=== PATIENT | female | born 1955 | race African-American/Black ===

== ENCOUNTER 2017-03-18 07:26 | Outpatient (CLI) | payer OTHER ==
[2017-03-18 07:44] LABS: EOSINOPHILS % 14.9 % (0.0-6.8); MEAN CORPUSCULAR HEMOGLOBIN 31.2 pg (28.0-34.0); MEAN CORPUSCULAR VOLUME 97.6 fl (80.0-100.0); MONOCYTES % 4.8 % (0.0-11.0); NEUTROPHILS # 1.3 # k/uL (1.4-7.7)
[2017-03-18 08:10] LABS: eGFR (African) > 60; eGFR (Non-African) > 60
[2017-03-19 07:01] LABS: APPEARANCE,URINE Clear (CLEAR); COLOR,URINE Yellow (YELLOW); OCCULT BLOOD,URINE Trace-lysed (NEGATIVE); UROBILINOGEN URINE 0.2 Eu (0.2-1.0)
== END 2017-03-18 07:27 ==
LOC: LAB 07:26
DX: E78.5 Hyperlipidemia, unspecified (principal)
CPT/HCPCS: 36415; 80053; 80061; 81002; 85025; 87086

== ENCOUNTER 2017-04-18 10:10 | Outpatient (CLI) | payer OTHER ==
[2017-04-18] MEDS ORDERED: ALBUTEROL SULFATE 2.5 MG/3 ML AMPUL.NEB NEB ONE (10:21)
== END 2017-04-18 10:12 ==
LOC: RT 10:10
PROVIDERS: ATTEND Physician Assistant
DX: R06.02 Shortness of breath (principal)
CPT/HCPCS: 94060

== ENCOUNTER 2018-11-25 01:05 | Emergency (ER) | payer OTHER ==
[2018-11-25] MEDS: IPRATROPIUM/ALBUTEROL SULFATE 3 ML AMPUL.NEB NEB ONE ×3 (01:15→02:35)
--- NOTE | 2018-11-25 01:17 | ED Physician Documentation ---
Dyspnea - HISTORIAN Historian: patient - HPI Stated Complaint: shortness of breath Chief Complaint: Dyspnea Additional Information: Patient presents to ED with shortness of breath since 1999. She states she had been outside playing with her grandson all day and came into the house tonight with shortness of breath. Patient has a history of COPD and used her inhaler several times before coming to the ER. Upon presentation to ED SaO2 was 66% on room air. Onset: hours (5) Duration: continues in ED Severity: moderate Exacerbated By: nothing Associated Symptoms: none Further Comments: no - ROS CONST: no problems EYES/ENT: none GI/: none NEURO/PSYCH: denies: headache MS/SKIN/LYMPH: none - PAST HX Lung Disease: COPD Cardiac Disease: none PE Risk Factors: none Surgeries/Procedures: denies: prior intubation Other History: none Allergies/Adverse Reactions: Allergies Allergy/AdvReac Type Severity Reaction Status Date / Time No Known Drug Allergies Allergy Verified 11/25/18 02:16 Home Medications: Ambulatory Orders Medication Instructions Recorded Albuterol Sulfate [Proair Hfa] 2 puff INH PRN PRN #8 02/03/17 Azithromycin 500 mg PO DAILY #5 tablet 11/25/18 Ipratropium/Albuterol Sulfate 1 vial INH TID 11/25/18 [Duoneb] Montelukast Sodium [Singulair] 10 mg PO HS #30 tablet 11/25/18 predniSONE [Deltasone] 10 mg PO DIRECTED #20 tablet 11/25/18 - SOCIAL HX Smoking History: quit less than 1 year, cigarettes, less than 1 pack/day Alcohol Use: none Drug Use: none - FAMILY HX Family History: none - REVIEWED ASSESSMENTS Nursing Assessment Reviewed: Yes Vitals Reviewed: Yes Progress - Progress Progress: 0229 Patient states she is feeling better and breathing easier. SaO2 is 92% on room air 0253 Patient ambulated to ER waiting room to get a magazine. Upon return SaO2 89% on room air. Patient recovered to 93% within seconds of rest. ED Results Lab/Radiology - Radiology Radiology Impressions: Report Submission Date: Nov 25, 2018 1:45:21 AM CDT Patient Study Name: ROXY VILLEGAS Date: Nov 25, 2018 1:20:36 AM CDT Modality Type: DX Gender: F Description: CHEST 1VIEW : 51 Institution: [facility] Physician: MARIELENA GRAVES Portable chest History: Shortness of breath Findings: The lungs are clear. There is no pleural effusion. Heart size, pulmonary vascularity, and osseous structures are unremarkable. The lungs are mildly hyperinflated. Impression: Mild hyperinflation. Electronically signed on Nov 25, 2018 1:45:21 AM CDT by: Edson Marcelino Dyspnea Physical Exam - EXAM General Appearance: no acute distress, alert EENT: RADAMES Respiratory: respiratory distress, prolonged expirations, accessory muscle use (tripod position), wheezes (scattered wheezing bilaterally) CVS: reg. rate & rhythm Abdomen: non-tender Skin: no rash Extremities: non-tender Neuro/Psych: oriented x3 Discharge Clincal Impression: COPD with acute exacerbation Prescriptions: Azithromycin 500 mg PO DAILY #5 tablet Montelukast Sodium [Singulair] 10 mg PO HS #30 tablet predniSONE [Deltasone] 10 mg PO DIRECTED #20 tablet Referrals: Estelita Oviedo MD [Primary Care Provider] - 2 Days Additional Instructions: 1. Take Azithromycin until gone 2. Take Prednisone as directed 3. Take singular daily 4. Follow up with PCP within 3 days. Discuss home oxygen 5. Return to ER for new or worsening symptoms. Call [address] Condition: Stable Disposition: 01 HOME, SELF-CARE Decision to Admit: NO Date of Decison to Admit: 11/25/18 Decision Time: 02:57
[2018-11-25] MEDS: methylPREDNISolone SOD SUCC 125 MG/2 ML VIAL ONE (01:20)
[2018-11-25] MEDS: methylPREDNISolone SOD SUCC 125 MG/2 ML VIAL IVP ONE (01:20)
[2018-11-25] MEDS: MONTELUKAST SODIUM 10 MG TABLET PO ONE (02:06)
[2018-11-25] MEDS: AZITHROMYCIN 250 MG TABLET PO ONE (02:27)
[2018-11-25 03:06] VITALS: BP 173/100
--- NOTE | 2018-11-25 06:45 | Diagnostic Imaging Report ---
MARIELENA GRAVES [facility] [id number] [facility] [id number] Report Submission Date: Nov 25, 2018 1:45:21 AM CDT Patient Study Name: ROXY VILLEGAS Date: Nov 25, 2018 1:20:36 AM CDT Modality Type: DX Gender: F Description: CHEST 1VIEW : 51 Institution: [facility] Physician: MARIELENA GRAVES Portable chest History: Shortness of breath Findings: The lungs are clear. There is no pleural effusion. Heart size, pulmonary vascularity, and osseous structures are unremarkable. The lungs are mildly hyperinflated. Impression: Mild hyperinflation. Electronically signed on Nov 25, 2018 1:45:21 AM CDT by: Edson WOODS
== END 2018-11-25 03:03 | disposition home or self-care (01) ==
LOC: ED 01:05
DX: J44.1 Chronic obstructive pulmonary disease with (acute) exacerbation (principal); Z87.891 Personal history of nicotine dependence
CPT/HCPCS: 71045; 94640; 96374; 99283; 99284; J2930; S1016